=== PATIENT | male | born 1990 | race African-American/Black ===

== ENCOUNTER 2017-04-20 13:37 | Emergency (ER) | payer OTHER ==
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
== END 2017-04-20 14:42 | disposition home or self-care (01) ==
LOC: CED 13:37 → CFTX 13:37
DX: M20.011 Mallet finger of right finger(s) (principal); F17.210 Nicotine dependence, cigarettes, uncomplicated
CPT/HCPCS: 29130; 73140; 99283